=== PATIENT | male | born 2000 | race Caucasian/White ===

== ENCOUNTER 2020-05-15 19:34 | Emergency (ER) | payer OTHER ==
[2020-05-15] MEDS ORDERED: LIDOCAINE 1% INJ-PF (10 MG/ML) 30 ML SDV INJ ONE (19:49)
--- NOTE | 2020-05-15 19:49 | ER Document Report ---
HPI - HPI Time Seen by Provider: 05/15/20 19:49
[2020-05-15] MEDS ORDERED: LIDOCAINE 1%/EPINEPHRINE INJ 20 ML VIAL INJ ONE (20:45)
--- NOTE | 2020-05-15 21:43 | ER Document Report ---
ED Hand/Wrist Injury - General Chief Complaint: Laceration Stated Complaint: RIGHT HAND LACERATION Time Seen by Provider: 05/15/20 19:49 Notes: 19-year-old male with no reported past medical history presenting with a laceration between his first and second finger on his right hand. He is right- hand dominant. States that the injury occurred about 7:00 tonight [place] the [place]. His friend tossed him a beer and he went to catch it and that caused the laceration. Laceration is approximately 1-1/2 cm. Superficial. No active bleeding. Is up-to-date on his tetanus. Past Medical History - Social History Smoking Status: Never Smoker Frequency of alcohol use: Social Drug Abuse: None Family History: Reviewed & Not Pertinent Patient has homicidal ideation: No Review of Systems - Review of Systems Constitutional: No symptoms reported EENT: No symptoms reported Cardiovascular: No symptoms reported Respiratory: No symptoms reported Gastrointestinal: No symptoms reported Genitourinary: No symptoms reported Male Genitourinary: No symptoms reported Musculoskeletal: No symptoms reported Skin: See HPI Hematologic/Lymphatic: No symptoms reported Neurological/Psychological: No symptoms reported Physical Exam - Vital signs Vitals: Temp Pulse Resp BP Pulse Ox 98.7 F 110 H 14 125/71 98 05/15/20 20:41 05/15/20 20:41 05/15/20 20:41 05/15/20 20:41 05/15/20 20:41 Interpretation: Normal - Notes Notes: Adult General: GENERAL: Alert, interacts well. No acute distress HEAD: Normocephalic, atraumatic EYES: Extraocular movements intact. ENT: Airway patent. Nares patent. NECK: Supple. Trachea midline. LUNGS: No respiratory distress. ABDOMEN: Nondistended. GENITOURINARY: Deferred EXTREMITIES: Moves all 4 extremities spontaneously. BACK: Moves all extremities with full range of motion. NEUROLOGICAL: Alert and oriented x3. Normal speech. Cranial nerves II through XII grossly intact. Strength 5/ 5 in all extremities. PSYCH: Normal affect, normal mood. SKIN: 1.5 cm laceration between index finger and thumb of right hand, superficial. can flex and extend fingers fully. Good sensation to light touch. good capillary refill. 2+ radial pulse, no signs of infection Course - Re-evaluation Re-evalutation: 05/15/20 22:39 The wound is 1.5 cm between thumb and index finger of right hand. The wound was copiously irrigated with normal saline and Shur Cleans. The wound was explored for foreign bodies and none were found. The wound was prepped and draped in the normal sterile fashion. The wound was anesthetized using 1% lidocaine with epi. The edges were reapproximated using 4-0 . Bleeding was well controlled and the patient tolerated the procedure well. Patient was instructed to have sutures removed in 7 days. Also instructed patient to watch for signs of infection to include fever, chills, erythema, swelling, discharge and if this occurs to return to the emergency department for additional treatment. Wound care was discussed. Patient acknowledges and verbalizes understanding of instructions and plan. All questions answered. - Vital Signs Vital signs: Temp Pulse Resp BP Pulse Ox 98.5 F 60 14 118/56 L 97 05/15/20 21:52 05/15/20 21:52 05/15/20 21:52 05/15/20 21:52 05/15/20 21:52 Discharge - Discharge Clinical Impression: Laceration Condition: Stable Disposition: HOME, SELF-CARE Instructions: Antibiotic Ointment Protection ([facility]), Laceration Care ([facility]), Soap Cleansing ([facility]) Additional Instructions: Your laceration has been sutured. Please follow-up with your primary care provider in 7 days to have sutures removed. Please evaluate for signs of infection to include worsening pain, erythema, swelling, discharge, fevers, chills. Please seek immediate medical attention if this occurs. You may return to the emergency department if the symptoms occur. Please keep the area clean and dry.
[2020-05-15 21:53] VITALS: BP 118/56
== END 2020-05-15 22:16 | disposition home or self-care (01) ==
LOC: ER 19:34
DX: S61.411A Laceration without foreign body of right hand, initial encounter (principal); W45.8XXA Other foreign body or object entering through skin, initial encounter; Y92.832 Beach as the place of occurrence of the external cause
CPT/HCPCS: 99282; 12001; J3490